=== PATIENT | male | born 2000 | race Caucasian/White ===

== ENCOUNTER 2022-01-05 02:49 | Emergency (ER) | payer SELFPAY ==
[~2022-01-05] VITALS: Ht 170.2 cm; Wt 76.0 kg
[2022-01-05 04:30] VITALS: BP 121/67
== END 2022-01-05 04:35 | disposition home or self-care (01) ==
LOC: ER 02:49
DX: F41.9 Anxiety disorder, unspecified (principal)
CPT/HCPCS: 99283

== ENCOUNTER 2022-01-05 05:44 | Emergency (ER) | payer SELFPAY ==
[~2022-01-05] VITALS: Ht 177.8 cm; Wt 92.2 kg
[2022-01-05 06:15] VITALS: BP 130/71
[2022-01-05] MEDS ORDERED: LORAZEPAM 1MG TABLET PO ONE (08:15)
== END 2022-01-05 08:36 | disposition home or self-care (01) ==
LOC: ER 05:44
DX: F41.9 Anxiety disorder, unspecified (principal)
CPT/HCPCS: 99283